=== PATIENT | male | born 1985 ===

== ENCOUNTER 2025-04-06 09:34 | Emergency (ER) | payer OTHER, SELFPAY ==
[2025-04-06 09:38] VITALS: BP 134/102
[2025-04-06 10:27] VITALS: BP 148/95
--- NOTE | 2025-04-06 10:35 | ED.GENMED ---
History of Present Illness
General
Chief Complaint: Chest Pain
Source: patient
Exam Limitations: none
Time Seen by Provider: 04/06/25 10:24
History of Present Illness
History of Present Illness:
See MDM
Past History
Past History
ED Past Medical History: GERD
ED Past Surgical History: None
Social History
Tobacco: Non-smoker
Alcohol: None
Phy Exam
Physical Exam
Physical Exam:
See MDM
Scores
Heart Score for Chest Pain Patients
STEMI patient?: No
History: Slightly or Non-Suspicious
ECG: Normal
Age: </= 45 years
Risk Factors: No Risk Factors
Troponin: </= Normal Limit
Heart Score for Chest Pain Patients: 0
Heart Score Risk: 2.5% MACE over next 6 weeks
Course
Orders/Labs/Results
Orders:
Orders
04/06/25 09:43
Electrocardiogram (*1) Urgent
Reason for Study: Chest Pain
EKG- Treatment ONCE
04/06/25 10:35
CR Chest - 2 Views Urgent
Comment:
Reason For Exam: chest pressure
04/06/25 11:11
Complete Blood Count/With Diff Urgent
Comprehensive Metabolic Panel Urgent
Troponin I Urgent
Abnormal Lab Results
04/06/25
11:11
Absolute Neuts (auto) 6.8 H 10^3/uL
(1.4-6.5)
Absolute Monos (auto) 0.8 H 10^3/uL
(0.1-0.6)
Lymphocytes % 18.5 L %
(20.5-51.1)
Sodium 134 L mmol/L
(135-145)
Glucose 107 H mg/dl
(70-99)
04/06/25 11:11
11/06/25 11:11
Vital Signs
Initial and Last Documented VS:
Initial Vital Signs
Pulse Resp BP Pulse Ox
88 20 134/102 95
04/06/25 09:38 04/06/25 09:38 04/06/25 09:38 04/06/25 09:38
Last Documented Vital Signs
Pulse Resp BP Pulse Ox
69 17 129/75 96
04/06/25 10:53 04/06/25 10:53 04/06/25 11:02 04/06/25 11:03
MDM/Problems Addressed
Differential Diagnosis Includes:
Note:
CHIEF COMPLAINT(S)
Abdominal pain and generalized body aches.
HISTORY OF PRESENT ILLNESS
The patient is a 39-year-old male presenting with a history of abdominal pain and generalized body aches that have been recurring for the past couple of years. He describes the abdominal discomfort as intermittent, with episodes occurring
spontaneously and affecting different parts of the abdomen. Last night, he noted the abdominal pain on the right side, but reports it has been migrating across different areas, including the left side and the area near the left pectoral muscle.
The patient has a history of exasperating symptoms after lying down following the ingestion of medications in the past, which improved when he adjusted the medication timing to dinner. He has tried managing symptoms with antacids such as famotidine
(Prilosec was mentioned) and Mediterranean Fiber supplement (Metamucil), noting relief when using these strategies. He also mentioned throat pain after possible exposure to a family member with streptococcal throat infection, but the sore throat
resolved over a week without any additional upper respiratory symptoms.
He expresses concern about the possibility of an underlying serious condition, though no alarming symptoms have been confirmed yet. The patients prior visit to urgent care revealed normal electrocardiogram results.
PAST MEDICAL AND SURGICAL HISTORY
No specific past medical or surgical history was discussed.
PHYSICAL EXAM
General: Alert, no acute distress.
Skin: Warm, dry.
Head: Normocephalic, atraumatic
Neck: Appears supple, trachea midline.
Eyes, Ears, Nose, Mouth, and Throat: Moist mucous membranes
Cardiovascular: No signs of cyanosis. Regular rate and rhythm
Respiratory: Respirations are non-labored. Lungs clear
Abdomen: Non-distended and nontender
Musculoskeletal: No deformities
Neurological: No focal neurological deficit observed.
Psychiatric: Cooperative, appropriate mood and affect.
PLAN
- Conduct blood work to rule out flu, cold, inflammatory conditions, and assess cardiac function.
- Obtain imaging to further evaluate abdominal symptoms.
- Discuss symptom management and potential medication adjustments.
DIFFERENTIAL DIAGNOSIS
The Differential Diagnosis includes, in no particular order and is not limited to:
- Gastritis
- Gastroesophageal reflux disease (GERD)
- Peptic ulcer disease
- Viral infection
- Costochondritis
- Musculoskeletal pain
- Anxiety-related somatic symptoms
- Autoimmune disorder
- Myocardial ischemia (less likely with normal previous EKG)
- Gallbladder disease
SUMMARY OF ENCOUNTER
The patient visited the emergency department expressing concerns over recurrent, non-localized abdominal pain and generalized body aches. He sought reassurance and potential treatment solutions following an episode of right-sided abdominal pain,
which had caused worry due to its recurrence and randomness. A physical examination was performed, revealing no acute distress. Nursing notes and vitals were reviewed. Blood work and imaging studies were planned to rule out infectious, inflammatory,
and cardiac causes.
MEDICATION RECONCILIATION
- Antacid (used at home): Famotidine
- Fiber supplement: Metamucil
MEDICAL DECISION MAKING
- Number and Complexity of Problems Addressed: Chronic conditions affecting care include recurrent abdominal pain and generalized body aches. See Differential Diagnosis list.
- Data:
Category 1:
- Planned blood work to assess for inflammation and cardiac concerns.
- Imaging studies for more detailed examination.
Category 2:
- No records or input from independent historians required.
Category 3:
- No consultations with other healthcare providers noted.
- Risk:
Prescription medication management and diagnostic testing were advised. Imaging and lab work deemed necessary to rule out serious underlying problems based on presenting symptoms and history conveyed.
EKG
My independent EKG interpretation is:
- Rhythm: Normal sinus rhythm
- Heart rate: 66 beats per minute
- [place]: Normal
- ST segment: No elevation
- Abnormalities: None noted
SUMMARY OF ENCOUNTER
The patient presented with concerns of chest discomfort intertwined with more chronic symptoms of abdominal pain and body aches. After evaluation, including a clear chest x-ray and a negative troponin test, acute coronary syndrome was considered
less likely. A plan was discussed for the patient to continue further workup with their primary care doctor. The patient agreed to this course and was comfortable with being discharged.
DISPOSITION
Discharge
ASSESSMENT
The assessment concluded that acute coronary syndrome was less likely due to the negative troponin and clear chest x-ray. The patients symptoms are chronic, warranting outpatient management.
EMERGENCY TREATMENTS ADMINISTERED
None
PLAN
1. Discharge the patient with instructions to follow up with their primary care provider for further evaluation.
2. Manage chronic symptoms and continue monitoring for any new or worsening symptoms.
INDEPENDENT REVIEW OF LABS AND INTERPRETATION OF TESTS
- My independent review of chest x-ray is clear.
- My independent review of troponin is negative.
PATIENT EDUCATION AND COUNSELING
The patient was informed that the current assessment suggests that acute coronary syndrome is less likely based on test results. It was emphasized the importance of follow-up with their primary care provider for further evaluation and management.
FOLLOW-UP INSTRUCTIONS
The patient should schedule a follow-up visit with their primary care provider for continued evaluation and management of chronic symptoms.
MEDICATION RECONCILIATION
- Antacid (home): Famotidine
- Fiber supplement: Psyllium (Metamucil)
MEDICAL DECISION MAKING
- Number and Complexity of Problems Addressed: Chronic conditions affecting care include recurrent abdominal pain and generalized body aches. Differential Diagnosis includes gastritis, gastroesophageal reflux disease (GERD), peptic ulcer disease,
viral infection, costochondritis, musculoskeletal pain, anxiety-related somatic symptoms, autoimmune disorder, myocardial ischemia (less likely with normal previous EKG), gallbladder disease.
- Data:
Category 1:
- My independent interpretation of chest x-ray and troponin test results.
Category 2:
- No input from independent historians necessary.
Category 3:
- Patient was comfortable with discharge plan after discussions.
- Risk:
Prescription medication management advised, with an emphasis on securing outpatient follow-up for continuity of care.
DIAGNOSIS
- Abdominal pain, unspecified (R10.9)
- Chest discomfort, unspecified (R07.9)
*Pulse Oximetry
SaO2: 95
Oxygen Mode of Delivery: Room air
Patient hypoxic: no
*Critical Care Note
Total Time (30-74mins, 75-104mins- exclusive of procedures): Not Applicable
ED Attending Note
-
Portions of this chart may have been created with voice recognition software.� Occasional wrong word or��sound alike� substitutions may have occurred due to the inherent limitations of voice recognition software.
Discharge Plan
Departure
Patient Disposition: Home (Routine Discharge)
Date of Disposition: 04/06/25
Time of Disposition: 12:28
Patient with high blood pressure during this ER visit?: No
Discharge Problem:
Chest pressure
Instructions: Chest Pain PCP Follow Up
Referrals:
UNKNOWN - PT DOES,NOT KNOW [Family Provider]
Activity Restrictions/Additional Instructions:
Please return for any worsening symptoms.
You may return at any time if you have further concerns.
Please follow up with your doctor at the first available appointment, preferably this week.
Thank you for choosing [facility].
Interventions
Interventions:
*Risk Screen - Suicide Last Done: 04/06/25 09:38
*General Assessment Last Done: 04/06/25 09:38
*Neglect/Abuse Screening Last Done: 04/06/25 09:38
Discharge Date and Time
Print Language: [id number]
[2025-04-06 11:02] VITALS: BP 129/75
[2025-04-06 11:29] LABS: Hematocrit 42.9 % (39.0-52.0); Hemoglobin 14.5 g/dL (13.0-18.0); Mean Corp Hgb Conc. 33.8 g/dL (33.0-37.0); Mean Corpuscular Volume 84.1 fL (80.0-94.0); Nucleated Red Blood Cells % 0 % (-); Platelet Count 277 10^3/uL (130-400); Red Cell Dist. Width 12.7 % (11.5-14.5)
[2025-04-06 11:44] LABS: ALT (SGPT) 29 U/L (0-50); AST (SGOT) 24 U/L (17-59); Albumin 4.0 g/dl (3.5-5.0); Alkaline Phosphatase 45 U/L (38-126); Blood Urea Nitrogen 19 mg/dl (9-20); Calcium 9.0 mg/dl (8.4-10.2); Carbon Dioxide 23 mmol/L (22-30); Chloride 105 mmol/L (98-107); Glucose 107 mg/dl (70-99); Potassium 4.1 mmol/L (3.5-5.1); Sodium 134 mmol/L (135-145); Total Protein 6.6 g/dl (6.3-8.2); eGFR > 60.00
[2025-04-06 11:48] LABS: Troponin I 0.012 ng/ml
[2025-04-06 12:00] VITALS: BP 120/62
== END 2025-04-06 12:30 | disposition home or self-care (01) ==
LOC: EMR 09:34
PROVIDERS: EMERGENCY PHYSICIAN Student in an Organized Health Care Education/Training Program
DX: R07.89 Other chest pain (principal); R10.9 Unspecified abdominal pain; K21.9 Gastro-esophageal reflux disease without esophagitis
CPT/HCPCS: 99285; 71046; 80053; 84484; 85025; 93005